=== PATIENT | female | born 1940 | race Two or more races ===

== ENCOUNTER 2017-03-23 22:16 | Emergency (ER) | payer MEDICARE, OTHER ==
[~2017-03-23] VITALS: Ht 172.7 cm; Wt 70.9 kg
[2017-03-23 23:11] LABS: ASPARTATE AMINO TRANSFERASE 34 U/L (15-37); BLOOD UREA NITROGEN 15 mg/dL (7-18)
[2017-03-24] MEDS ORDERED: ONDANSETRON ODT 4 MG ONE (00:07)
[2017-03-24] MEDS ORDERED: ONDANSETRON ODT 4 MG PO ONE (00:30)
[2017-03-24 01:05] VITALS: BP 138/70
== END 2017-03-24 01:45 | disposition home or self-care (01) ==
LOC: ED 23:43
DX: F10.120 Alcohol abuse with intoxication, uncomplicated (principal)
CPT/HCPCS: 36415; 80053; 80307; 85025; 99284; Q0162